=== PATIENT | male | born 1960 | race Two or more races ===

== ENCOUNTER 2016-12-30 10:06 | Day surgery (SDC) | payer OTHER ==
[~2016-12-30] VITALS: Ht 172.2 cm; Wt 106.0 kg
[~2016-12-30 10:06] MED LIST: FIORICET TABLET1 TAB PO; IBUPROFEN200 M2 PO; NO HOME MEDS; TUMS200 MG PO
== END 2016-12-30 19:10 ==
LOC: SRG 10:06 → SHSB 10:06 → SRG 10:30 → PACU 14:18 → SHSB 15:35 → SRG 19:10
PROC: 0WUF0JZ Supplement Abdominal Wall with Synthetic Substitute, Open Approach (ICD-10-PCS; principal; 2016-12-30)
DX: K42.9 Umbilical hernia without obstruction or gangrene (principal); F17.210 Nicotine dependence, cigarettes, uncomplicated; E66.9 Obesity, unspecified; Z68.35 Body mass index [BMI] 35.0-35.9, adult; Z98.890 Other specified postprocedural states
CPT/HCPCS: C1781; J0690; J1170; J3010